=== PATIENT | male | born 1950 | race Two or more races ===

== ENCOUNTER → 2018-03-06 | Outpatient (CLI) | payer MEDICARE, OTHER ==
[2018-03-06 17:44] LABS: CREATININE 1.16 mg/dL (0.7-1.3)
== END | disposition home or self-care (01) ==
LOC: RAD 16:56
PROVIDERS: ATTEND Family Medicine
DX: R91.8 Other nonspecific abnormal finding of lung field (principal); R59.1 Generalized enlarged lymph nodes; M48.54XA Collapsed vertebra, not elsewhere classified, thoracic region, initial encounter for fracture
CPT/HCPCS: 36415; 71260; 82565

== ENCOUNTER 2018-03-15 13:51 | Inpatient (IN) | payer OTHER ==
[~2018-03-15] VITALS: Ht 160 cm; Wt 77.9 kg
[2018-03-15] MEDS ORDERED: SODIUM CHLORIDE FLUSH 10ML SYR IVF ONE (14:30)
[2018-03-15 14:36] LABS: BASOPHILS # (AUTO) 0.02 x10^3/uL (0-0.1); BASOPHILS % (AUTO) 0 % (0-1); EOSINOPHILS # (AUTO) 0.08 x10^3/uL (0-0.4); EOSINOPHILS % (AUTO) 1 % (1-7); LYMPHOCYTES # (AUTO) 1.74 x10^3/uL (1-3.4); LYMPHOCYTES % (AUTO) 19 % (22-44); MD NO; MEAN CORPUSCULAR HEMOGLOBIN 29.1 pg (27.5-34.5); MEAN CORPUSCULAR HGB CONC 32.9 g/dL (33.2-36.2); MEAN CORPUSCULAR VOLUME 88.4 fL (81-97); MEAN PLATELET VOLUME 7.7 fL (7.4-10.4); MONOCYTES # (AUTO) 0.79 x10^3/uL (0.2-0.8); MONOCYTES % (AUTO) 9 % (2-9); NEUTROPHILS # (AUTO) 6.47 x10^3/uL (1.8-6.8); NEUTROPHILS % (AUTO) 71 % (42-75); PLATELET COUNT 338 x10^3/uL (130-400); RED BLOOD COUNT 4.83 x10^6/uL (4.38-5.82); RED CELL DISTRIBUTION WIDTH 15.2 % (9.4-14.8)
[2018-03-15 14:46] LABS: INTERNATIONAL NORMALIZED RATIO 1.01 (0.93-1.1); PROTHROMBIN TIME 10.4 Seconds (9.6-11.5)
[2018-03-15 14:48] LABS: ALANINE AMINOTRANSFERASE 17 U/L (12-78); ALBUMIN 3.3 g/dL (3.4-5.0); ANION GAP 12 mmol/L (5-15); CALCIUM 9.7 mg/dL (8.5-10.1); CHLORIDE 102 mmol/L (98-107); CREATININE 1.35 mg/dL (0.7-1.3)
[2018-03-15 14:53] LABS: ALKALINE PHOSPHATASE 117 U/L (45-117); BILIRUBIN,TOTAL 0.4 mg/dL (0.2-1.0); TOTAL PROTEIN 8.7 g/dL (6.4-8.2); TROPONIN I < 0.015 ng/mL (0.000-0.045)
[2018-03-15] MEDS ORDERED: OMNIPAQUE 350 MG/ML, 100ML BOTTLE ONE (16:36)
[2018-03-15] MEDS ORDERED: SODIUM CHLORIDE 0.9% 1,000 ML IV ONE (16:55)
[2018-03-15] MEDS ORDERED: SODIUM CHLORIDE FLUSH 10ML SYR IVF PRN (17:00)
[2018-03-15] MEDS: SODIUM CHLORIDE 0.9% 1,000 ML IV SCH (17:17)
[2018-03-15] MEDS ORDERED: ACETAMINOPHEN 325 MG TABLET PO PRN (17:30)
[2018-03-15 20:00] VITALS: BP 136/71
[2018-03-15] MEDS ORDERED: ALBUTEROL SULFATE 2.5 MG/3 ML NPPB PRN (20:30)
[2018-03-15] MEDS ORDERED: BISO5TAB2 PO (21:51)
[2018-03-15] MEDS ORDERED: AMIT75TA PO (22:13)
[2018-03-15] MEDS ORDERED: ASPI325T17 PO (22:13)
[2018-03-15] MEDS ORDERED: ATOR40TA78 PO (22:13)
[2018-03-15] MEDS ORDERED: HYDR12.58 PO (22:13)
[2018-03-15] MEDS ORDERED: DULO30CA43 PO (22:13)
[2018-03-15] MEDS ORDERED: OXYC-432 PO (22:13)
[2018-03-15] MEDS ORDERED: LISI10TA2 PO (22:13)
[2018-03-15] MEDS: AMITRIPTYLINE 50 MG TABLET PO SCH (23:25)
[2018-03-15] MEDS: ATORVASTATIN 40 MG TABLET PO SCH (23:26)
[2018-03-16] MEDS ORDERED: NICOTINE 7 MG/24 HR PATCH.TD24 TD SCH (00:30)
[2018-03-16 01:05] VITALS: BP 114/63
[2018-03-16 05:38] LABS: BASOPHILS # (AUTO) 0.05 x10^3/uL (0-0.1); BASOPHILS % (AUTO) 1 % (0-1); EOSINOPHILS # (AUTO) 0.12 x10^3/uL (0-0.4); EOSINOPHILS % (AUTO) 2 % (1-7); LYMPHOCYTES # (AUTO) 1.25 x10^3/uL (1-3.4); LYMPHOCYTES % (AUTO) 17 % (22-44); MD NO; MEAN CORPUSCULAR HEMOGLOBIN 28.9 pg (27.5-34.5); MEAN CORPUSCULAR HGB CONC 32.7 g/dL (33.2-36.2); MEAN CORPUSCULAR VOLUME 88.3 fL (81-97); MEAN PLATELET VOLUME 7.7 fL (7.4-10.4); MONOCYTES # (AUTO) 0.76 x10^3/uL (0.2-0.8); MONOCYTES % (AUTO) 11 % (2-9); NEUTROPHILS # (AUTO) 5.08 x10^3/uL (1.8-6.8); NEUTROPHILS % (AUTO) 70 % (42-75); PLATELET COUNT 286 x10^3/uL (130-400); RED BLOOD COUNT 4.13 x10^6/uL (4.38-5.82); RED CELL DISTRIBUTION WIDTH 15.1 % (9.4-14.8)
[2018-03-16 05:44] LABS: ALANINE AMINOTRANSFERASE 14 U/L (12-78); ALBUMIN 2.9 g/dL (3.4-5.0); ANION GAP 9 mmol/L (5-15); CALCIUM 8.9 mg/dL (8.5-10.1); CHLORIDE 104 mmol/L (98-107); CREATININE 0.92 mg/dL (0.7-1.3)
[2018-03-16 05:46] LABS: ALKALINE PHOSPHATASE 96 U/L (45-117); BILIRUBIN,TOTAL 0.3 mg/dL (0.2-1.0); TOTAL PROTEIN 7.3 g/dL (6.4-8.2)
[2018-03-16] MEDS ORDERED: ASPIRIN 325 MG TABLET PO SCH (06:00)
[2018-03-16 07:06] VITALS: BP 147/69
[2018-03-16] MEDS: DULOXETINE 30 MG CAPSULE.DR PO SCH (08:14)
[2018-03-16] MEDS: LISINOPRIL 10 MG TABLET PO SCH (08:14)
[2018-03-16] MEDS: METOPROLOL TARTRATE 25 MG TABLET PO SCH (08:14)
[2018-03-16] MEDS ORDERED: HYDROCHLOROTHIAZIDE 12.5 MG CAPSULE PO SCH (09:00)
[2018-03-16] MEDS: SODIUM CHLORIDE 0.9% 1,000 ML IV SCH (12:21)
[2018-03-16 14:30] VITALS: BP 107/54
[2018-03-16 20:03] VITALS: BP 122/65
[2018-03-16] MEDS: ATORVASTATIN 40 MG TABLET PO SCH (22:16)
[2018-03-16] MEDS: AMITRIPTYLINE 50 MG TABLET PO SCH (22:16)
[2018-03-16] MEDS ORDERED: NICOTINE GUM 2 MG BC PRN (22:30)
[2018-03-16] MEDS ORDERED: NICOTINE GUM 4 MG BC PRN (23:00)
[2018-03-17] MEDS ORDERED: NICOTINE GUM 2 MG BC PRN (00:30)
[2018-03-17 02:21] VITALS: BP 94/56
[2018-03-17 05:00] LABS: BASOPHILS # (AUTO) 0.03 x10^3/uL (0-0.1); BASOPHILS % (AUTO) 0 % (0-1); EOSINOPHILS # (AUTO) 0.17 x10^3/uL (0-0.4); EOSINOPHILS % (AUTO) 2 % (1-7); LYMPHOCYTES # (AUTO) 1.55 x10^3/uL (1-3.4); LYMPHOCYTES % (AUTO) 21 % (22-44); MD NO; MEAN CORPUSCULAR HEMOGLOBIN 29.1 pg (27.5-34.5); MEAN CORPUSCULAR HGB CONC 32.9 g/dL (33.2-36.2); MEAN CORPUSCULAR VOLUME 88.3 fL (81-97); MEAN PLATELET VOLUME 7.3 fL (7.4-10.4); MONOCYTES # (AUTO) 0.67 x10^3/uL (0.2-0.8); MONOCYTES % (AUTO) 9 % (2-9); NEUTROPHILS # (AUTO) 5.06 x10^3/uL (1.8-6.8); NEUTROPHILS % (AUTO) 68 % (42-75); PLATELET COUNT 304 x10^3/uL (130-400); RED BLOOD COUNT 4.19 x10^6/uL (4.38-5.82); RED CELL DISTRIBUTION WIDTH 14.8 % (9.4-14.8)
[2018-03-17] MEDS: SODIUM CHLORIDE 0.9% 1,000 ML IV SCH ×2 (06:20→23:02)
[2018-03-17] MEDS: HEPARIN 5,000 UNITS/ML, 1ML SQ SCH ×4 (07:00→20:06)
[2018-03-17] MEDS: METOPROLOL TARTRATE 25 MG TABLET PO SCH (08:33)
[2018-03-17] MEDS: LISINOPRIL 10 MG TABLET PO SCH (08:33)
[2018-03-17] MEDS: DULOXETINE 30 MG CAPSULE.DR PO SCH (08:34)
[2018-03-17 08:37] VITALS: BP 117/68
[2018-03-17 14:07] VITALS: BP 123/65
[2018-03-17 19:56] VITALS: BP 133/57
[2018-03-17] MEDS: ATORVASTATIN 40 MG TABLET PO SCH (20:04)
[2018-03-17] MEDS: AMITRIPTYLINE 50 MG TABLET PO SCH (20:06)
[2018-03-18 01:09] VITALS: BP 111/62
[2018-03-18] MEDS: HEPARIN 5,000 UNITS/ML, 1ML SQ SCH ×3 (05:12→23:00)
[2018-03-18 07:11] VITALS: BP 111/61
[2018-03-18] MEDS: DULOXETINE 30 MG CAPSULE.DR PO SCH (09:21)
[2018-03-18] MEDS: OXYcodone/APAP 10/325MG TABLET PO PRN (09:21)
[2018-03-18] MEDS: METOPROLOL TARTRATE 25 MG TABLET PO SCH (09:22)
[2018-03-18] MEDS ORDERED: NALOXONE 1 MG/ML, 2ML ONE (09:22)
[2018-03-18] MEDS ORDERED: FENTANYL PF 100 MCG/2ML ONE ×2 (09:22)
[2018-03-18] MEDS ORDERED: MIDAZOLAM 1 MG/ML, 5ML ONE (09:22)
[2018-03-18] MEDS: LISINOPRIL 10 MG TABLET PO SCH (09:22)
[2018-03-18] MEDS ORDERED: FLUMAZENIL 0.1 MG/1 ML, 5ML ONE (09:22)
[2018-03-18 12:27] VITALS: BP 110/56
[2018-03-18] MEDS: SODIUM CHLORIDE 0.9% 1,000 ML IV SCH (17:04)
[2018-03-18 19:21] VITALS: BP 124/55
[2018-03-18] MEDS: AMITRIPTYLINE 50 MG TABLET PO SCH (21:21)
[2018-03-18] MEDS: ATORVASTATIN 40 MG TABLET PO SCH (21:21)
[2018-03-19 01:40] VITALS: BP 118/56
[2018-03-19] MEDS: HEPARIN 5,000 UNITS/ML, 1ML SQ SCH ×3 (05:58→23:00)
[2018-03-19 08:04] VITALS: BP 110/53
[2018-03-19] MEDS: LISINOPRIL 10 MG TABLET PO SCH (08:33)
[2018-03-19] MEDS: DULOXETINE 30 MG CAPSULE.DR PO SCH (08:33)
[2018-03-19] MEDS: OXYcodone/APAP 10/325MG TABLET PO PRN ×2 (08:34→16:04)
[2018-03-19] MEDS: METOPROLOL TARTRATE 25 MG TABLET PO SCH (08:34)
[2018-03-19] MEDS ORDERED: GUAIFENESIN 200 MG TABLET PO SCH ×2 (09:30)
[2018-03-19] MEDS: SODIUM CHLORIDE 0.9% 1,000 ML IV SCH (10:02)
[2018-03-19] MEDS: GUAIFENESIN 200 MG TABLET PO SCH ×2 (10:05→20:50)
[2018-03-19 10:49] LABS: TROPONIN I < 0.015 ng/mL (0.000-0.045)
[2018-03-19 13:27] VITALS: BP 106/52
[2018-03-19 19:50] VITALS: BP 104/50
[2018-03-19] MEDS: ATORVASTATIN 40 MG TABLET PO SCH (20:50)
[2018-03-19] MEDS: AMITRIPTYLINE 50 MG TABLET PO SCH (20:50)
[2018-03-20] MEDS: SODIUM CHLORIDE 0.9% 1,000 ML IV SCH ×2 (01:24→05:00)
[2018-03-20 01:53] VITALS: BP 96/54
[2018-03-20] MEDS: HEPARIN 5,000 UNITS/ML, 1ML SQ SCH ×3 (07:00→23:00)
[2018-03-20 07:29] VITALS: BP 94/59
[2018-03-20] MEDS: GUAIFENESIN 200 MG TABLET PO SCH ×2 (08:20→21:23)
[2018-03-20] MEDS: LISINOPRIL 10 MG TABLET PO SCH (08:20)
[2018-03-20] MEDS: DULOXETINE 30 MG CAPSULE.DR PO SCH (08:21)
[2018-03-20] MEDS: ASPIRIN 81 MG TABLET EC PO SCH (08:21)
[2018-03-20 14:43] VITALS: BP 136/54
[2018-03-20 19:38] VITALS: BP 138/65
[2018-03-20] MEDS: AMITRIPTYLINE 50 MG TABLET PO SCH (21:23)
[2018-03-20] MEDS: ATORVASTATIN 40 MG TABLET PO SCH (21:23)
[2018-03-21 01:19] VITALS: BP 127/58
[2018-03-21] MEDS: SODIUM CHLORIDE 0.9% 1,000 ML IV SCH ×2 (05:00→20:28)
[2018-03-21] MEDS: HEPARIN 5,000 UNITS/ML, 1ML SQ SCH ×3 (05:44→20:27)
[2018-03-21] MEDS: ASPIRIN 81 MG TABLET EC PO SCH (05:44)
[2018-03-21 07:05] VITALS: BP 126/65
[2018-03-21] MEDS: LISINOPRIL 10 MG TABLET PO SCH (08:10)
[2018-03-21] MEDS: GUAIFENESIN 200 MG TABLET PO SCH ×2 (08:10→20:27)
[2018-03-21] MEDS: DULOXETINE 30 MG CAPSULE.DR PO SCH (08:10)
[2018-03-21 13:20] VITALS: BP 161/66
[2018-03-21] MEDS ORDERED: OMNIPAQUE 350 MG/ML, 100ML BOTTLE ONE (18:15)
[2018-03-21] MEDS: ATORVASTATIN 40 MG TABLET PO SCH (20:27)
[2018-03-21] MEDS: AMITRIPTYLINE 50 MG TABLET PO SCH (20:27)
[2018-03-21 20:36] VITALS: BP 144/71
[2018-03-21] MEDS: OXYcodone/APAP 10/325MG TABLET PO PRN (20:57)
[2018-03-22 01:35] VITALS: BP 119/68
[2018-03-22] MEDS: HEPARIN 5,000 UNITS/ML, 1ML SQ SCH ×3 (05:41→20:08)
[2018-03-22] MEDS: ASPIRIN 81 MG TABLET EC PO SCH (05:41)
[2018-03-22 08:13] VITALS: BP 100/63
[2018-03-22] MEDS: LISINOPRIL 10 MG TABLET PO SCH (08:52)
[2018-03-22] MEDS: GUAIFENESIN 200 MG TABLET PO SCH ×2 (08:52→20:08)
[2018-03-22] MEDS: DULOXETINE 30 MG CAPSULE.DR PO SCH (08:52)
[2018-03-22] MEDS: OXYcodone/APAP 10/325MG TABLET PO PRN (10:51)
[2018-03-22] MEDS ORDERED: GADOBUTROL 10 MMOL/10 ML PFS ONE (11:50)
[2018-03-22 13:41] VITALS: BP 131/66
[2018-03-22] MEDS: SODIUM CHLORIDE 0.9% 1,000 ML IV SCH (14:57)
[2018-03-22 19:58] VITALS: BP 148/65
[2018-03-22] MEDS: AMITRIPTYLINE 50 MG TABLET PO SCH (20:07)
[2018-03-22] MEDS: ATORVASTATIN 40 MG TABLET PO SCH (20:07)
[2018-03-23 02:47] VITALS: BP 133/62
[2018-03-23] MEDS: ASPIRIN 81 MG TABLET EC PO SCH (06:02)
[2018-03-23] MEDS: HEPARIN 5,000 UNITS/ML, 1ML SQ SCH ×2 (07:00→11:54)
[2018-03-23 08:04] VITALS: BP 94/54
[2018-03-23] MEDS: GUAIFENESIN 200 MG TABLET PO SCH (08:10)
[2018-03-23] MEDS: DULOXETINE 30 MG CAPSULE.DR PO SCH (08:10)
[2018-03-23] MEDS: LISINOPRIL 10 MG TABLET PO SCH (08:10)
[2018-03-23 12:58] VITALS: BP 110/57
== END 2018-03-23 14:46 | disposition home or self-care (01) | DRG 180 ==
LOC: ED 16:54 → EDIP 16:55 → ED 17:09 → 3NW 18:44
PROVIDERS: ADMIT Internal Medicine; ATTEND Internal Medicine
PROC: 0BBJ3ZX Excision of Left Lower Lung Lobe, Percutaneous Approach, Diagnostic (ICD-10-PCS; principal; 2018-03-18)
DX: C34.90 Malignant neoplasm of unspecified part of unspecified bronchus or lung (principal); N17.0 Acute kidney failure with tubular necrosis; E87.1 Hypo-osmolality and hyponatremia; R04.2 Hemoptysis; C79.31 Secondary malignant neoplasm of brain; M48.54XA Collapsed vertebra, not elsewhere classified, thoracic region, initial encounter for fracture; G47.00 Insomnia, unspecified; G89.29 Other chronic pain; M54.9 Dorsalgia, unspecified; I10 Essential (primary) hypertension; I73.9 Peripheral vascular disease, unspecified; J06.9 Acute upper respiratory infection, unspecified; J44.9 Chronic obstructive pulmonary disease, unspecified; Z87.891 Personal history of nicotine dependence; Z99.81 Dependence on supplemental oxygen
CPT/HCPCS: 32400; 36415; 70553; 71045; 71046; 71275; 74177; 77012; 80053; 83605; 84484; 85025; 85610; 85730; 87040; 88305; 93005; 99156; 99157; 99285; A9585; C2613; J1644; J2250; J3010; Q9967; J2310; J7030

== ENCOUNTER → 2018-04-26 | Outpatient (CLI) | payer OTHER ==
[~2018-04-26] MED LIST: AMIT75TA PO; ASPI325T17 PO; ATOR40TA78 PO; BISO5TAB2 PO; DULO30CA43 PO; HYDR12.58 PO; LISI10TA2 PO; OXYC-432 PO
== END | disposition home or self-care (01) ==
LOC: ROC 08:33
PROVIDERS: ATTEND Radiology Radiation Oncology
DX: C34.32 Malignant neoplasm of lower lobe, left bronchus or lung (principal)
CPT/HCPCS: 99213; G0463